=== PATIENT | female | born 1970 | race Caucasian/White ===

== ENCOUNTER 2020-12-12 09:12 | Emergency (ER) | payer OTHER, SELFPAY ==
--- NOTE | ~2020-12-12 | XR_ITS ---
EXAMINATION: XR chest 2V EXAM DATE: 12/12/2020 09:58 INDICATION: Productive cough, symptoms one month. TECHNIQUE: Frontal and lateral projections of the chest obtained and reviewed. Comparison is made to prior examination from 12/07/2017. FINDINGS: Small amount of left pleural blunting compared to prior study, probably trace effusion. Th ere are cholecystectomy clips. The lungs are clear. The cardiomediastinal silhouette is within naveed l limits. There is no pneumothorax suspected. The bones and soft tissues are unremarkable. Incide ntal azygos fissure. IMPRESSION: Trace left pleural effusion. Reviewed, dictated and finalized at location B. ER PRESS OPERATOR
--- NOTE | 2020-12-12 09:32 | ED.GENADULT ---
HPI - General Adult General Chief complaint: Upper Respiratory Infection Stated complaint: Cough,Alergy Reaction Time Seen by Provider: 12/12/20 09:32 Source: patient Mode of arrival: ambulatory Limitations: no limitations History of Present Illness HPI narrative: 50-year-old female patient presents to the [facility] with complaints of cough for the past month. Denies any fevers, body aches or chills. Patient states she has a had a lot of issues with sinuses and drainage but denies taking any daily antihistamines. Denies any ear pain or sore throat. Denies any abdominal pain, nausea, vomiting or diarrhea. Patient states she has taken Mucinex a couple of times here in there. Patient states he thinks he might of aspirated an apple peel about a month ago which she is still thinking is causing her cough. Patient also does report that she smokes marijuana recreationally. Patient states that time she does have a productive cough and coughs up some yellow type of sputum. Denies any shortness of breath but states that when she coughs she does have some soreness to the lower left side of her back. Related Data Home Medications Medication Instructions Recorded Confirmed estradiol 1 mg PO DAILY 12/12/20 12/12/20 fluoxetine 20 mg PO DAILY 12/12/20 12/12/20 lidocaine 5 ea TOPICAL DAILY 12/12/20 12/12/20 spironolactone 50 mg PO DAILY 12/12/20 12/12/20 Allergies Allergy/AdvReac Type Severity Reaction Status Date / Time codeine Allergy Unknown Unknown Verified 12/12/20 09:26 Review of Systems Review of Systems: Narrative: CONSTITUTIONAL: Denies fever, chills, or sweats. EYES: Denies visual changes, redness, or discharge. ENT: Positive rhinorrhea, congestion, denies sore throat, or otalgia. CARDIOVASCULAR: Denies chest pain, palpitations, or edema. RESPIRATORY: Positive cough with sputum production, denies dyspnea. GASTROINTESTINAL: Denies abdominal pain, nausea, vomiting, or diarrhea. GENITOURINARY: Denies dysuria or hematuria. SKIN: Denies rash or itching. MUSCULOSKELETAL: Denies back pain, joint pain, or myalgia. NEUROLOGIC: Denies headache, numbness, or weakness. PSYCHIATRIC: Denies anxiety or depression. [facility] Past Medical History Medical History (Updated 02/01/21 @ 10:19 by CHRISTIN Dan) Allergies Sleep apnea Surgical History Surgical History (Updated 12/12/20 @ 09:33 by CHRISTIN Dan) Hx of cholecystectomy Social History Social History (Updated 12/12/20 @ 09:43 by CHRISTIN Dan) Gender identity (if verbalized by the patient): Transgender Male Additional gender identity comments: Patient born female but preoperative of getting transgender male surgery Comments At the time of my signature I agree with nursing past medical history, surgical, social, and family history. There is no relevant family history pertinent to the presenting complaint. Exam Narrative: Exam Narrative: GENERAL: Well-appearing, well-nourished, and in no acute distress. HEAD: Normocephalic, atraumatic. EYES: PERRLA and EOMI. ENT: Nares clear, no rhinorrhea or epistaxis. Mucous membranes moist. Posterior pharynx with no erythema, tonsil management, exudates or lesions present. Bilateral TMs are clear no erythema or foreign bodies in the canal. NECK: Supple. No lymphadenopathy CHEST: Clear to auscultation. No respiratory distress. Patient able talk in clear complete sentences. No coughing noted during exam at this time. HEART: Regular rate and rhythm. No murmur heard. Normal peripheral pulses. ABDOMEN: Soft, nontender, nondistended, normal active bowel sounds. EXTREMITIES: Normal range of motion. No edema. SKIN: Warm, dry, no rash. NEURO: No focal deficits. Alert and oriented x3. Course Reevaluation(s) Reevaluation #1: Reevaluated patient after her x-ray had resulted. Notified her that it does show a very small pleural effusion to the lower left lung. Discussed with her that this most likely is what is causing h
[2020-12-12 09:39] VITALS: BP 114/60; PULSE 81; RESP 16; TEMP 36.8; O2SAT 100
== END 2020-12-12 10:22 | disposition home or self-care (01) ==
PROVIDERS: Emergency Provider Nurse Practitioner Family; PCP Family Medicine
DX: J90 Pleural effusion, not elsewhere classified (principal); J06.9 Acute upper respiratory infection, unspecified; R05 Cough; G47.30 Sleep apnea, unspecified
CPT/HCPCS: 71046; 99213; G0463

== ENCOUNTER 2022-09-15 09:28 | Emergency (ER) | payer OTHER, SELFPAY ==
[2022-09-15 09:36] VITALS: BP 116/67; PULSE 55; RESP 16; TEMP 36.6; O2SAT 98
--- NOTE | 2022-09-15 09:36 | ED.URI ---
HPI - URI/Sore Throat General Chief Complaint: Upper Respiratory Infection Stated Complaint: cough Time Seen by Provider: 09/15/22 09:42 Source: patient and RN notes reviewed Mode of arrival: ambulatory Limitations: no limitations History of Present Illness HPI Narrative: 51-year-old female presents concern for 1 and half month history of cough nasal congestion, sinus pressure drainage. Reports persistent cough. She denies shortness of breath, fever, body aches, chills, sweats. Denies taking any [id number] medications for her symptoms MD elicited complaint: cough and nasal congestion Related Data Home Medications Medication Instructions Recorded Confirmed estradiol 1 mg tablet 2 mg PO BID 12/12/20 09/15/22 Allergies Allergy/AdvReac Type Severity Reaction Status Date / Time codeine Allergy Unknown Unknown Verified 09/15/22 09:36 Review of Systems Review of Systems: CONSTITUTIONAL: Denies malaise, chills, sweats, or fever. EYES: Denies visual changes, redness, or discharge. ENT: Reports rhinorrhea, congestion, sinus pain. Denies otalgia and sore throat. CARDIOVASCULAR: Denies chest pain, palpitations, or edema. RESPIRATORY: Reports cough. Denies dyspnea. GASTROINTESTINAL: Denies abdominal pain, nausea, vomiting, diarrhea SKIN: Denies rash or itching. MUSCULOSKELETAL: Denies myalgia. NEUROLOGIC: Denies headache. All systems reviewed & are unremarkable except as noted in HPI and below PMFSH Past Medical History Medical History (Updated 09/15/22 @ 09:50 by Margo Xavier NP) Allergies Sleep apnea Surgical History Surgical History (Updated 12/12/20 @ 09:33 by CHRISTIN Dan) Hx of cholecystectomy Social History Social History (Updated 12/12/20 @ 09:43 by CHRISTIN Dan) Gender identity (if verbalized by the patient): Transgender Male Additional gender identity comments: Patient born female but preoperative of getting transgender male surgery Comments At time of signature, agree with nursing past medical, surgical, social and family history. There is no relevant family history pertinent to the presenting complaint Exam Narrative: GENERAL: Well-appearing, well-nourished, and in no acute distress. HEAD: Normocephalic EYES: PERRLA, conjunctivae clear ENT: Nares clear, turbinates edematous and erythematous. Mucous membranes moist. TM pearly sandoval with dull light reflex bilaterally; no tragal tenderness. Oropharynx not erythematous without lesions. Tonsils not enlarged and without exudate, no drooling, no hoarseness, no trismus, uvula midline. NECK: Supple. No lymphadenopathy CHEST: Clear to auscultation, breath sounds equal. No wheezing, rhonchi, rales, or stridor. No respiratory distress, speaks in full sentences. HEART: Regular rate and rhythm. No murmur heard. SKIN: Warm, dry, no rash. NEURO: Alert and oriented x3. PSYCH: Normal mood and affect Course Course Emergency Course: Patient is aware of diagnosis, understands and agrees to treatment plan. Anticipatory guidance given. Patient agrees to follow-up as directed and is aware of reasons to seek care at the emergency department. Portions of this record may have been created with voice recognition software Level of Care: Express Care Visit Vital Signs Vital signs: Reviewed. MDM - URI/Sore Throat MDM Narrative Medical decision making narrative: Differential diagnosis considered: [place] virus, strep pharyngitis, allergic rhinitis, upper respiratory tract infection, sinusitis, rhinosinusitis, nasopharyngitis. viral pharyngitis, otitis media, otitis externa, pneumonia, bronchitis, viral cough syndrome, viral syndrome, and influenza. Exam findings show no acute concerns or changes; patient is non-toxic appearing and is in no distress. Patient is appropriate for outpatient treatment and follow-up. Lab Data Attestation: I reviewed the patient's lab results. Critical Care Time Critical Care Time Critical Care Time: No Disch
[2022-09-15 09:37] VITALS: BP 116/67; PULSE 55; RESP 16; TEMP 36.6; O2SAT 98
== END 2022-09-15 10:00 | disposition home or self-care (01) ==
PROVIDERS: Emergency Provider Nurse Practitioner
DX: J32.9 Chronic sinusitis, unspecified (principal); J40 Bronchitis, not specified as acute or chronic; G47.30 Sleep apnea, unspecified
CPT/HCPCS: 99213; G0463

== ENCOUNTER 2022-10-10 16:11 | Emergency (ER) | payer OTHER, SELFPAY ==
[2022-10-10 16:25] VITALS: BP 123/72; PULSE 64; RESP 16; TEMP 37.3; O2SAT 98
--- NOTE | 2022-10-10 18:12 | ED.URI ---
HPI - URI/Sore Throat General Chief Complaint: Upper Respiratory Infection Stated Complaint: cough Time Seen by Provider: 10/10/22 18:13 Source: patient, RN notes reviewed and old records reviewed Mode of arrival: ambulatory Limitations: no limitations History of Present Illness HPI Narrative: 51 year old female who presents to [facility] with complaints of cough which is productive with fatigue and rib pain from cough. Patient reports that she took steroids earlier in the month and she felt better for about a week after completing her medication.. Patient reports no fevers chills or sweats Patient states that she has been COVID vaccinated and has had Flu shot. Patient has been taking Mucinex for her symptoms MD elicited complaint: cough Pertinent past history: other (sinobronchitis) Treatments prior to arrival: other (Mucinex) Related Data Home Medications Medication Instructions Recorded Confirmed estradiol 1 mg tablet 2 mg PO BID 12/12/20 10/10/22 Allergies Allergy/AdvReac Type Severity Reaction Status Date / Time codeine Allergy Unknown Unknown Verified 10/10/22 17:36 Review of Systems Review of Systems: CONSTITUTIONAL: Denies malaise, chills, sweats, or fever. EYES: Denies visual changes, redness, or discharge. ENT: Reports rhinorrhea, congestion, sinus pain, no otalgia or sore throat. CARDIOVASCULAR: Denies chest pain, palpitations, or edema. RESPIRATORY: Reports cough.? Denies dyspnea.Reports rib pain from frequent cough GASTROINTESTINAL: Denies abdominal pain, nausea, vomiting, diarrhea SKIN: Denies rash or itching. MUSCULOSKELETAL: Denies myalgia. NEUROLOGIC: Denies headache. All systems reviewed & are unremarkable except as noted in HPI and below [facility] Past Medical History Medical History (Updated 10/11/22 @ 00:01 by Patricia Watson) Allergies Sleep apnea Surgical History Surgical History (Updated 12/12/20 @ 09:33 by CHRISTIN Dan) Hx of cholecystectomy Social History Social History (Updated 12/12/20 @ 09:43 by CHRISTIN Dan) Gender identity (if verbalized by the patient): Transgender Male Additional gender identity comments: Patient born female but preoperative of getting transgender male surgery Comments At time of signature, agree with nursing past medical, surgical, social and family history. There is no relevant family history pertinent to the presenting complaint Exam Narrative: GENERAL: Well-appearing, well-nourished, and in no acute distress. HEAD: Normocephalic EYES: PERRLA, conjunctivae clear ENT: Nares clear, turbinates edematous and erythematous, clear discharge. Mucous membranes moist. TM pearly sandoval with dull light reflex bilaterally; no tragal tenderness. Oropharynx erythematous without lesions. Tonsils not enlarged and without exudate, no drooling, no hoarseness, no trismus, uvula midline. NECK: Supple. No lymphadenopathy CHEST: Clear to auscultation, breath sounds equal. No wheezing, rhonchi, rales, or stridor. No respiratory distress, speaks in full sentences.productive cough SAO2 98% on room air, rib pain patient reports due to cough, denies any pain with deep breathing. HEART: Regular rate and rhythm. No murmur heard. SKIN: Warm, dry, no rash. NEURO: Alert and oriented x3. PSYCH: Normal mood and affect Course Course Emergency Course: Patient is aware of diagnosis, understands and agrees to treatment plan.? Anticipatory guidance given.? Patient agrees to follow-up as directed and is aware of reasons to seek care at the emergency department. Portions of this record may have been created with voice recognition software Level of Care: Express Care Visit Vital Signs Vital signs: Vital Signs Temperature 37.3 C 10/10/22 16:25 Pulse Rate 64 10/10/22 16:25 Respiratory Rate 16 10/10/22 16:25 Blood Pressure 123/72 10/10/22 16:25 Pulse Oximetry 98 10/10/22 16:25 Oxygen Delivery Room Air 10/10/22 16:25
== END 2022-10-10 18:30 | disposition home or self-care (01) ==
PROVIDERS: Emergency Provider Registered Nurse
DX: J06.9 Acute upper respiratory infection, unspecified (principal); G47.30 Sleep apnea, unspecified
CPT/HCPCS: 99213; G0463

== ENCOUNTER 2023-08-09 11:47 | Emergency (ER) | payer OTHER, SELFPAY ==
--- NOTE | ~2023-08-09 | XR_ITS ---
EXAMINATION: XR chest 2V DATE: 08/09/2023 12:56 INDICATION: Cough. TECHNIQUE: Frontal and lateral views of the chest were obtained. COMPARISON: Chest 2 views 12/12/2020, chest CT 12/07/2017 FINDINGS: There is no pneumonia, pleural effusion, or pneumothorax. The heart size is normal. Surgica l clips in the right upper quadrant are likely from cholecystectomy. IMPRESSION: 1. No acute cardiopulmonary disease. Reviewed, dictated and finalized at location E.
[2023-08-09 11:58] VITALS: BP 148/88; PULSE 87; RESP 16; TEMP 37; O2SAT 100
--- NOTE | 2023-08-09 12:46 | ED.URI ---
HPI - URI/Sore Throat General Chief Complaint: Upper Respiratory Infection Stated Complaint: cough Time Seen by Provider: 08/09/23 12:40 Source: patient and RN notes reviewed Mode of arrival: ambulatory Limitations: no limitations History of Present Illness HPI Narrative: Patient presents today complaining of a 4-6 week history of occasionally productive cough, rhinorrhea, postnasal drip, occasionally sore throat. Denies shortness of breath, chest pain, fever. She has tried Sudafed with mild short-term relief. Related Data Home Medications Medication Instructions Recorded Confirmed estradiol 1 mg tablet 2 mg PO BID 12/12/20 10/10/22 ergocalciferol (vitamin D2) 1,250 08/09/23 08/09/23 mcg (50,000 unit) capsule Allergies Allergy/AdvReac Type Severity Reaction Status Date / Time codeine AdvReac Unknown Abdominal Verified 08/09/23 12:03 Pain Review of Systems Review of Systems: CONSTITUTIONAL: Denies body aches, fever, chills, or sweats. EYES: Denies visual changes, redness, or discharge. ENT: Denies congestion, or otalgia.+ rhinorrhea, sore throat, postnasal drip CARDIOVASCULAR: Denies chest pain, palpitations, or edema. RESPIRATORY: Denies dyspnea.+ cough GASTROINTESTINAL: Denies abdominal pain, nausea, vomiting, or diarrhea. GENITOURINARY: Denies dysuria or hematuria. SKIN: Denies rash, itching, or wounds. MUSCULOSKELETAL: Denies back pain, joint pain, or myalgia. NEUROLOGIC: Denies headache, numbness, tingling, or weakness. PSYCH: Denies depression or anxiety. [facility] Past Medical History Medical History Allergies Sleep apnea Surgical History Surgical History Hx of cholecystectomy Social History Social History Gender identity (if verbalized by the patient): Transgender Male Additional gender identity comments: Patient born female but preoperative of getting transgender male surgery Comments At time of signature, I have reviewed and agree with nursing past medical, surgical, social and family history unless otherwise noted. Please see nursing chart for further information. There is no relevant family history pertinent to the presenting complaint Exam Narrative: GENERAL: Well-appearing, well-nourished, and in no acute distress. HEAD: Normocephalic, atraumatic. EYES: EOMI. No redness or drainage. Conjunctivae normal. ENT: Mucous membranes pink and moist. Nares clear. No rhinorrhea. TMs normal bilaterally. Throat normal. Uvula midline. NECK: Normal AROM. Supple. No lymphadenopathy. CHEST: No respiratory distress. Clear to auscultation. HEART: Regular rate and rhythm. No murmur appreciated. Normal peripheral pulses. EXTREMITIES: Normal range of motion. No edema. SKIN: Warm, dry, no rash. Capillary refill normal. Normal skin turgor. NEURO: No focal deficits. Alert and oriented x3. Gait steady. PSYCH: Normal affect. No signs of depression or anxiety. Course Course Level of Care: Express Care Visit Vital Signs Vital signs: Vital Signs Temperature 98.6 F 08/09/23 11:58 Pulse Rate 87 08/09/23 11:58 Respiratory Rate 16 08/09/23 11:58 Blood Pressure 148/88 H 08/09/23 11:58 Pulse Oximetry 100 08/09/23 11:58 Oxygen Delivery Room Air 08/09/23 11:58 Temperature 98.6 F 08/09/23 11:58 Pulse Rate 87 08/09/23 11:58 Respiratory Rate 16 08/09/23 11:58 Blood Pressure 148/88 H 08/09/23 11:58 Pulse Oximetry 100 08/09/23 11:58 Oxygen Delivery Room Air 08/09/23 11:58 Reviewed MDM - URI/Sore Throat MDM Narrative Medical decision making narrative: Chest x-ray ordered due to length of illness. Chest x-ray negative. Will treat with amoxicillin and prednisone for sinusitis and bronchitis. Patient declines prescription for cough medication. Patient agrees with pl
== END 2023-08-09 13:26 | disposition home or self-care (01) ==
PROVIDERS: Emergency Provider Nurse Practitioner
DX: J40 Bronchitis, not specified as acute or chronic (principal); J01.90 Acute sinusitis, unspecified; Z79.899 Other long term (current) drug therapy
CPT/HCPCS: 71046; 99213; G0463

== ENCOUNTER 2023-09-06 08:06 | Emergency (ER) | payer OTHER, SELFPAY ==
[2023-09-06 08:13] VITALS: BP 119/64; PULSE 71; RESP 20; TEMP 36.7; O2SAT 98
--- NOTE | 2023-09-06 08:16 | ED.URI ---
HPI - URI/Sore Throat General Chief Complaint: Upper Respiratory Infection Stated Complaint: cough Time Seen by Provider: 09/06/23 08:16 Source: patient Mode of arrival: ambulatory Limitations: no limitations History of Present Illness HPI Narrative: 52-year-old female presents with complaint for 2 months. Reports postnasal drainage. Taking daily antihistamines and helping. No chest pain or shortness of breath. Seen here approximately 1 month ago and given steroids and antibiotic. Patient has not followed up with her primary care physician regarding cough. Afebrile. all systems reviewed and negative except as noted above. Related Data Home Medications Medication Instructions Recorded Confirmed estradiol 1 mg tablet 2 mg PO BID 12/12/20 10/10/22 ergocalciferol (vitamin D2) 1,250 08/09/23 08/09/23 mcg (50,000 unit) capsule Allergies Allergy/AdvReac Type Severity Reaction Status Date / Time codeine AdvReac Unknown Abdominal Verified 08/09/23 12:03 Pain Review of Systems Review of Systems: CONSTITUTIONAL: Denies fever, chills, or sweats. EYES: Denies visual changes, redness, or discharge. ENT: Denies rhinorrhea, congestion, sore throat, or otalgia. Reports postnasal drainage. CARDIOVASCULAR: Denies chest pain, palpitations, or edema. RESPIRATORY: Reports cough. Denies dyspnea. GASTROINTESTINAL: Denies abdominal pain, nausea, vomiting, or diarrhea. GENITOURINARY: Denies dysuria or hematuria. SKIN: Denies rash or itching. MUSCULOSKELETAL: Denies back pain, joint pain, or myalgia. NEUROLOGIC: Denies headache, numbness, or weakness. PSYCHIATRIC: Denies anxiety or depression. All other systems reviewed are negative, except as documented in HPI. [facility] Past Medical History Medical History Allergies Sleep apnea Surgical History Surgical History Hx of cholecystectomy Social History Social History Gender identity (if verbalized by the patient): Transgender Male Additional gender identity comments: Patient born female but preoperative of getting transgender male surgery Comments At time of signature, agree with nursing past medical, surgical, social and family history. There is no relevant family history pertinent to the presenting complaint. Exam Narrative: GENERAL: This is a well-nourished, well-developed patient, in no apparent distress. HEAD: normocephalic, atraumatic. EYES: PERRL. Sclera clear/white. Vision is grossly intact. EARS: External ears normal, auditory canals clear and without drainage, TMs normal without perforation. Hearing grossly intact. NOSE: External nose normal with Nasal drainage, nares without redness, THROAT: Mucous membranes moist, postnasal drainage noted with mild erythema. No swelling or exudates. NECK: Neck supple, non-tender without lymphadenopathy, masses or thyromegaly. CARDIOVASCULAR: Regular rate and rhythm without murmurs, gallops, or rubs. RESPIRATORY: Clear to auscultation. Breath sounds equal bilaterally. No wheezes, rales, or rhonchi. SKIN: warm, Dry, intact with no suspicious lesions or rash, good texture and turgor. NEURO: awake, alert, and oriented to person, place and time. There were no obvious focal neurologic abnormalities. EXTREMITIES: No joint tenderness, effusion, or edema noted. Course Course Level of Care: Express Care Visit Vital Signs Vital signs: Vital Signs Temperature 36.7 C 09/06/23 08:13 Pulse Rate 71 09/06/23 08:13 Respiratory Rate 20 09/06/23 08:13 Blood Pressure 119/64 09/06/23 08:13 Pulse Oximetry 98 09/06/23 08:13 Temperature 36.7 C 09/06/23 08:13 Pulse Rate 71 09/06/23 08:13 Respiratory Rate 20 09/06/23 08:13 Blood Pressure 119/64 09/06/23 08:13 Pulse Oximetry 98 09/06/23 08:13 revi
== END 2023-09-06 08:30 | disposition home or self-care (01) ==
PROVIDERS: Emergency Provider Nurse Practitioner Family
DX: J01.90 Acute sinusitis, unspecified (principal)
CPT/HCPCS: 99213; G0463